=== PATIENT | female | born 1985 | race Caucasian/White ===

== ENCOUNTER 2023-03-18 07:49 | Day surgery (SDC) | payer OTHER ==
[~2023-03-18] VITALS: Ht 157.5 cm; Wt 88.0 kg
[~2023-03-18 07:49] MED LIST: ATOR1TAB21 PO; FAMO40TA3 PO; METF500T13 PO; ceFAZolin SOD 2 GM in IV 1 EA IV ONE
[2023-03-18] MEDS ORDERED: propofoL 200 MG/20 ML VIAL As Ordered ONE ×3 (07:55→11:15)
[2023-03-18] MEDS ORDERED: LIDOCAINE 2% 100MG/5ML SDV (FOR ANES.) As Ordered ONE (07:55)
[2023-03-18] MEDS ORDERED: ONDANSETRON 4MG 2ML VIAL As Ordered ONE (07:56)
[2023-03-18] MEDS ORDERED: KETOROLAC 60MG 2ML VIAL As Ordered ONE (07:56)
[2023-03-18] MEDS ORDERED: fentaNYL 100 MCG/2 ML INJECTION As Ordered ONE (08:00)
[2023-03-18] MEDS ORDERED: MIDAZOLAM INJ 2MG/2ML VIAL As Ordered ONE (08:00)
[2023-03-18] MEDS ORDERED: IRON1TAB2 PO (08:25)
[2023-03-18] MEDS ORDERED: CLAR10CA3 PO (08:25)
[2023-03-18] MEDS ORDERED: LR 1,000 ML IV SCH (08:45)
[2023-03-18 08:46] LABS: HCG, SERUM QUALITATIVE NEGATIVE (NEGATIVE)
[2023-03-18] MEDS ORDERED: GENTAMICIN SULF 80MG/2ML VIAL As Ordered ONE (09:23)
[2023-03-18] MEDS ORDERED: LIDOCAINE 2% MDV 20ML VIAL As Ordered ONE (09:24)
[2023-03-18] MEDS ORDERED: ACETAMINOPHEN 1000MG 100ML IV BAG As Ordered ONE (10:22)
[2023-03-18 13:10] VITALS: BP 166/89; TEMP 97.1; O2SAT 96
== END 2023-03-18 13:10 | disposition home or self-care (01) ==
LOC: M SDC 07:49
PROVIDERS: ATTEND Podiatrist
DX: D21.9 Benign neoplasm of connective and other soft tissue, unspecified (principal); E78.00 Pure hypercholesterolemia, unspecified; R73.03 Prediabetes; K21.9 Gastro-esophageal reflux disease without esophagitis; Z79.899 Other long term (current) drug therapy; Z79.84 Long term (current) use of oral hypoglycemic drugs; Z88.5 Allergy status to narcotic agent
CPT/HCPCS: 28045; 36415; 84703; 88304; 88305; 88331; 97116; J0131; J0665; J0690; J1100; J1580; J1885; J2250; J2405; J3010

== ENCOUNTER → 2023-05-25 | Outpatient (CLI) | payer OTHER ==
[~2023-05-25] MED LIST changes: +CLAR10CA3 PO; +IRON1TAB2 PO; -ceFAZolin SOD 2 GM in IV 1 EA IV ONE
== END ==
LOC: M PLAIMG 14:31
PROVIDERS: ATTEND Physician Assistant
DX: J32.8 Other chronic sinusitis (principal)